=== PATIENT | female | born 1990 | race Caucasian/White ===

== ENCOUNTER → 2016-09-11 | Outpatient (CLI) | payer OTHER ==
--- NOTE | 2016-09-11 15:26 | XR ---
EXAMINATION TYPE: XR chest 2V DATE OF EXAM: 09/11/2016 COMPARISON: Prior chest x-ray 02/11/2015 HISTORY: Histoplasmosis, cough TECHNIQUE: Frontal and lateral views of the chest are obtained. FINDINGS: Apical cavitary change again noted on the left in the upper lobe. No pneumothorax or pleur al effusion. Cardiac mediastinal silhouette, pulmonary vascularity and binh are stable. IMPRESSION: No acute cardiopulmonary process. Persistent left upper lobe cavitary changes.
== END ==
LOC: RADXRMAIN 14:19
PROVIDERS: ATTEND Physician Assistant
DX: R05 Cough (principal)
CPT/HCPCS: 71020